=== PATIENT | female | born 1985 | race Caucasian/White ===

== ENCOUNTER 2024-01-22 07:34 | Day surgery (SDC) | payer OTHER ==
[2024-01-20 14:59] VITALS: BMI 34.0
[~2024-01-22 07:34] MED LIST: Pre Op ABX Message 1 EACH MISC MISCELLANE ONE
[2024-01-22] MEDS: LACTATED RINGERS 1,000 ML IV SCH (08:21)
[2024-01-22] MEDS: DEXAMETHASONE SOD PHOSPHATE 4 MG/ML 1 ML VIAL IV ONE (08:30)
[2024-01-22] MEDS: SCOPOLAMINE 1 MG/72 HR PATCH TRANSDERM STA (08:30)
[2024-01-22] MEDS: FAMOTIDINE 20 MG/2 ML VIAL IV STA (08:32)
[2024-01-22] MEDS: MIDAZOLAM 2 MG/2 ML VIAL IV ONE (08:33)
[2024-01-22] MEDS: IV FLUID CONTINUATION 1,000 ML IV ONE (08:41)
--- NOTE | 2024-01-22 08:52 | P.HPOB ---
History of Present Illness H&P Date: 01/22/24 Chief Complaint: Desires permanent sterilization Ms. Azar is a 38 year old who presents for permanent contraception. Past Medical History Past Medical History: GERD/Reflux, Musculoskeletal Disorder Additional Past Medical History / Comment(s): Medical anxiety causes blood pressure to elevate. Ankylosing Spondalitis. History of Any Multi-Drug Resistant Organisms: None Reported Past Surgical History: Breast Surgery, Section Additional Past Surgical History / Comment(s): Breast augmentation, lymph node removed. Past Anesthesia/Blood Transfusion Reactions: Previous Problems w/ Anesthesia, Postoperative Nausea & Vomiting (PONV) Additional Past Anesthesia/Blood Transfusion Reaction / Comment(s): Sensitive to anestheisa, doesn't take much, breathing got too slow with breast augmentation. Smoking Status: Never smoker - Past Family History Mother Family Medical History: No Reported History Medications and Allergies Home Medications Medication Instructions Recorded Confirmed Type Naltrexone HCl 25 mg PO QAM 01/20/24 01/20/24 History Omeprazole [PriLOSEC] 10 mg PO HS 01/20/24 01/20/24 History buPROPion HCL [buPROPion HCL Xl] 150 mg PO QAM 01/20/24 01/20/24 History Allergies Allergy/AdvReac Type Severity Reaction Status Date / Time latex Allergy Skin Verified 01/20/24 15:05 irritation ondansetron [From Zofran] Allergy Swelling Verified 01/20/24 14:45 Exam Vital Signs Temp Pulse Resp BP Pulse Ox 01/22/24 08:43 89 18 143/107 97 01/22/24 08:17 97.9 F 105 H 20 165/115 98 Intake and Output 01/21/24 01/22/24 01/22/24 22:59 06:59 14:59 Other: Weight 90.4 kg Focused physical exam is performed. This is a healthy-appearing female in no apparent distress. Breathing is non-labored. Abdomen is soft and non-tender. Extremities non-tender and non-edematous. Assessment and Plan Assessment: 38 year old presenting for permanent contraception Plan: Risks, benefits, and alternatives of Laparoscopic Bilateral Salpingectomy are discussed with the patient including risk of bleeding, infection, damage to surrounding structures, risk of regret. The patient is informed that this proced ure is non-reversible. She is aware that she would never again be able to become again without IVF. All questions answered and patient wishes to proceed with surgery as discussed.
[2024-01-22] MEDS ORDERED: LIDOCAINE 1% INJ 10MG/ML (20 ML MDV) ONE (08:58)
[2024-01-22] MEDS ORDERED: KETOROLAC 30 MG/ML 1 ML VIAL ONE (08:58)
[2024-01-22] MEDS ORDERED: ROCURONIUM 10 MG/ML (5 ML VIAL) IV ONE (08:58)
[2024-01-22] MEDS ORDERED: GLYCOPYRROLATE 0.2 MG/ML 2 ML VIAL ONE (08:58)
[2024-01-22] MEDS ORDERED: fentaNYL (PF) 50 MCG/ML 2 ML AMP ONE (08:58)
[2024-01-22] MEDS ORDERED: SUCCINYLCHOLINE CHLORIDE 200 MG/10 ML VIAL IV ONE (08:58)
[2024-01-22] MEDS ORDERED: HYDROmorphone (PF) 1 MG/ML ONE (08:58)
[2024-01-22] MEDS ORDERED: PROPOFOL 10 MG/ML 20 ML VIAL IV ONE (08:58)
[2024-01-22] MEDS ORDERED: NEOSTIGMINE 1 MG/ML 10 ML VIAL ONE (08:58)
[2024-01-22] MEDS: BUPIVACAINE (PF) 0.25% 30 ML VIAL SQ ONE ×2 (09:26→09:51)
[2024-01-22 10:08] VITALS: TEMP 97.1
--- NOTE | 2024-01-22 10:08 | P.OP ---
Date of Procedure: 01/22/24 Preoperative Diagnosis: 1. Family planning 2. Risk reduction 3. Patient desires permanent sterilization Postoperative Diagnosis: Same Procedure(s) Performed: Laparoscopic Bilateral Salpingectomy Implants: None Anesthesia: JANICEA Surgeon: Sallie Wetzel Estimated Blood Loss (ml): 5 IV fluids (ml): 500 Urine output (ml): 50 Pathology: other (bilatearl fallopian tubes, left paratubal cyst) Condition: stable Disposition: same day Indications for Procedure: Ms. Azar is a 38 year old who presents for permanent contraception via laparoscopic bilateral salpingectomy. The risks, benefits, and alternatives to laparoscopic bilateral salpingectomy are discussed with the patient including risk of bleeding, infection, damage to surrounding structures, and postoperative VTE the patient understands these risks and desires to proceed with surgery as discussed. Operative Findings: Normal appearing pelvis. Left fallopian tube with a 4 centimeter simple- appearing paratubal cyst. Otherwise, uterus, bilateral fallopian tubes, and ovaries within normal limits. Description of Procedure: Patient was taken to the OR with IV fluid running and pneumatic compression stockings on both legs. General anesthesia was obtained without difficulty. The patient was placed in the dorsal lithotomy position with Ted-type stirrups with knees bent at 30 degree angles. Examination under anesthesia revealed a normal-sized, anteverted uterus. The patient as prepared and draped. The bladder was emptied. A speculum was placed into the vagina. The anterior lip of the cervix was grasped with a single-toothed tenaculum. The uterus sounded to 8 centimeters. A uterine manipulator was introduced. A vertical skin incision was made at the umbilical fold. The periumbilical skin was manually elevated. The Veress needle was introduced into the peritoneal cavity at a straight angle without difficulty. A saline drop test was performed to validate intraperitoneal placement. The pneumoperitoneum was established with CO2 gas to a pressure of 15mmHg. A 5mm trocar was inserted into the abdomen under direct laparoscopic visualization. Intraabdominal survey revealed lack of any visceral or vascular injury. The pelvic and abdominal anatomy was noted as above. Two additional laparoscopic assit ports were placed in the right and left lower quadrants. A Gwen Grasper was used to pickers material handlers the fimbriated end of the right fallopian tube. The LigaSure device was used to seal and ligate the fallopian tube sequentially to the level of the uterine cornua. The fallopian tube was then transected and removed through the laparoscopic port. This process was repeated on the left side. An endocatch specimen bag was used to remove the left paratubal cyst with extension of the fascia and skin at the left lower quadrant site necessary to remove the specimen. The fascia at this site was closed with 0-Vicryl. All instruments were then removed from the abdomen and vagina. All skin incisions were then closed with 4-0 Monocryl and skin glue. Excellent hemostasis was noted at the end of the case. The patient tolerated the procedure well. All instruments were removed from the abdomen and vagina, and all counts were correct times two. The patient was taken to the recovery room in stable condition.the recovery room in stable condition.
[2024-01-22] MEDS: HYDROmorphone 0.5 MG/0.5 ML SYRINGE IVP PRN (10:12)
[2024-01-22] MEDS: hydrALAZINE HCL 20 MG/ML 1 ML VIAL IVP PRN (12:13)
[2024-01-22 12:41] VITALS: BP 134/89; PULSE 112; RESP 18
== END 2024-01-22 12:53 | disposition home or self-care (01) ==
LOC: OR 07:34
PROVIDERS: ATTEND Obstetrics & Gynecology
CPT/HCPCS: 81025; 88307